=== PATIENT | female | born 1985 | race Two or more races ===

== ENCOUNTER → 2017-05-17 | Emergency (ER) | payer OTHER ==
[~2017-05-17] VITALS: Ht 165.1 cm; Wt 56.7 kg
[~2017-05-17] MED LIST: BENADRYL50 MG/M1 IV; PHENERGAN25 MG; PROTONIX40 MG; SOLU CORTE IV
== END | disposition home or self-care (01) ==
LOC: ER 11:00
DX: K29.60 Other gastritis without bleeding (principal)

== ENCOUNTER 2017-06-29 20:56 | Emergency (ER) | payer OTHER ==
[~2017-06-29] VITALS: Ht 165.1 cm; Wt 55.3 kg
== END 2017-06-29 22:00 | disposition home or self-care (01) ==
LOC: ER 20:56
DX: J11.1 Influenza due to unidentified influenza virus with other respiratory manifestations (principal)

== ENCOUNTER 2018-10-27 12:14 | Outpatient (CLI) | payer OTHER | END 2018-10-27 16:32 | disposition home or self-care (01) | LOC: LAB 12:14 | DX: K57.30 Diverticulosis of large intestine without perforation or abscess without bleeding (principal) ==

== ENCOUNTER 2018-10-27 13:48 | Outpatient (CLI) | payer OTHER | END 2018-10-27 13:55 | disposition home or self-care (01) | LOC: TOM 13:48 | DX: K57.30 Diverticulosis of large intestine without perforation or abscess without bleeding (principal); N20.0 Calculus of kidney ==

== ENCOUNTER 2020-04-16 07:27 | Outpatient (CLI) | payer OTHER | END 2020-04-16 07:33 | disposition home or self-care (01) | LOC: MRI 07:27 | PROVIDERS: ATTEND Orthopaedic Surgery | DX: M25.872 Other specified joint disorders, left ankle and foot (principal) | CPT/HCPCS: 73721 ==